=== PATIENT | female | born 1950 ===

== ENCOUNTER 2022-06-01 12:47 | Emergency (ER) | payer MEDICARE, OTHER ==
[2022-06-01] MEDS ORDERED: Sodium Chloride 0.9% 10 ML Syringe FLUSH PRN (13:05)
== END 2022-06-01 19:23 | disposition home or self-care (01) ==
LOC: JD.ED 12:47
DX: D50.9 Iron deficiency anemia, unspecified (principal); Z88.5 Allergy status to narcotic agent
CPT/HCPCS: 36415; 36430; 80053; 85025; 86850; 86900; 86901; 86922; 99284; J3490; P9016